=== PATIENT | female | born 1975 | race Caucasian/White ===

== ENCOUNTER → 2019-08-27 11:47 | Outpatient (BNVA) | payer SELFPAY | PROVIDERS: Family Provider Family Medicine; Visit Provider Nurse Practitioner Women's Health | DX: Z79.890 Hormone replacement therapy (principal); Z01.419 Encounter for gynecological examination (general) (routine) without abnormal findings | CPT/HCPCS: 88175 ==

== ENCOUNTER 2024-06-09 10:32 | Outpatient (CLI) | payer SELFPAY ==
--- NOTE | 2024-06-09 10:40 | MM_ITS ---
WS: [id number] BILATERAL 3D TOMOSYNTHESIS DIGITAL SCREENING MAMMOGRAPHY WITH CAD CLINICAL INFORMATION: SCREENING HISTORY: Screening mammogram. No current complaints. COMPARISON: 2019 TECHNIQUE: Bilateral CC and MLO views. FINDINGS: The breasts are composed of heterogeneous fibroglandular density tissue, which can limit the detection of small underlying mass lesions. Slightly spiculated asymmetric density near the 6 o'clock position in the retroareolar RIGHT breast. Recommend further evaluation with RIGHT breast diagnostic mammography and ultrasound if persistent MM/MM [facility] tomosynthesis [id number] IMPRESSION: DENSITY: The breasts are heterogeneously dense, which may obscure small masses. BI-RADS: 0 - Incomplete: Need additional imaging evaluation FOLLOW UP: Need Additional Imaging Recommend further evaluation with RIGHT breast diagnostic mammography and ultra sound if persistent
== END 2024-06-09 10:33 | disposition home or self-care (01) ==
LOC: MOBLMAM 10:34
PROVIDERS: PCP Family Medicine; Visit Provider Family Medicine
DX: Z12.31 Encounter for screening mammogram for malignant neoplasm of breast (principal); R92.333 Mammographic heterogeneous density, bilateral breasts; N63.15 Unspecified lump in the right breast, overlapping quadrants
CPT/HCPCS: 77063; 77067